=== PATIENT | male | born 1995 | race Caucasian/White ===

== ENCOUNTER 2021-01-22 18:59 | Emergency (ER) | payer MEDICAID ==
[~2021-01-22] VITALS: Ht 185.4 cm; Wt 82.7 kg
[2021-01-22 21:20] LABS: ALBUMIN 4.3 G/DL (3.4-5.0); ANION GAP 9 (8-16); BLOOD UREA NITROGEN 14 MG/DL (7-18); BUN/CREATININE RATIO 11.8 (5.4-32.0); CALCIUM 9.1 MG/DL (8.5-10.1); CHLORIDE 103 MMOL/L (99-107); CREATININE 1.19 MG/DL (0.60-1.10); GLUCOSE 98 MG/DL (70-104); POTASSIUM 4.3 MMOL/L (3.5-5.1); SODIUM 141 MMOL/L (135-145); TOTAL CARBON DIOXIDE 28.6 MMOL/L (24-32); eGFR 74 ML/MIN
[2021-01-22] MEDS ORDERED: CYCL-1 PO (23:20)
[2021-01-22] MEDS: ketorolac trometh. 30mg/ml inj. IM ONE (23:48)
[2021-01-22] MEDS: orphenadrine citrate 60mg/2ml inj. IM ONE (23:48)
[2021-01-22 23:54] VITALS: BP 123/86
== END 2021-01-22 23:55 | disposition home or self-care (01) ==
LOC: ER 19:00
DX: M62.838 Other muscle spasm (principal); M25.512 Pain in left shoulder; E86.0 Dehydration; R25.3 Fasciculation; F12.90 Cannabis use, unspecified, uncomplicated; Z86.16 Personal history of COVID-19; Z88.0 Allergy status to penicillin; Z79.899 Other long term (current) drug therapy; Z72.89 Other problems related to lifestyle
CPT/HCPCS: 36415; 80048; 93005; 96372; 99284; J1885; J2360